=== PATIENT | female | born 1940 | race Caucasian/White ===

== ENCOUNTER → 2016-04-14 | Outpatient (CLI) | payer MEDICARE, BC | END | disposition home or self-care (01) | LOC: PCVCIMAG 13:40 | PROVIDERS: ATTEND Internal Medicine Cardiovascular Disease | DX: I25.10 Atherosclerotic heart disease of native coronary artery without angina pectoris (principal); I35.0 Nonrheumatic aortic (valve) stenosis; E78.00 Pure hypercholesterolemia, unspecified; E11.9 Type 2 diabetes mellitus without complications; L93.0 Discoid lupus erythematosus; R76.8 Other specified abnormal immunological findings in serum; M79.7 Fibromyalgia | CPT/HCPCS: 80061; 93005; 93306; G0463 ==

== ENCOUNTER → 2017-05-11 | Outpatient (CLI) | payer MEDICARE | END | disposition home or self-care (01) | LOC: PCVCIMAG 12:51 | DX: I25.10 Atherosclerotic heart disease of native coronary artery without angina pectoris (principal); R93.1 Abnormal findings on diagnostic imaging of heart and coronary circulation; I35.0 Nonrheumatic aortic (valve) stenosis; L93.0 Discoid lupus erythematosus; E11.9 Type 2 diabetes mellitus without complications; Z79.899 Other long term (current) drug therapy; Z88.0 Allergy status to penicillin | CPT/HCPCS: 80061; 93005; 93306; G0463 ==

== ENCOUNTER → 2018-08-27 | Outpatient (CLI) | payer MEDICARE, BC ==
--- NOTE | 2018-08-27 15:29 | PCVCIMAG ---
APPROVED REPORT Study performed: 08/27/2018 14:57:58 EXAM: Comprehensive 2D, Doppler, and color-flow Echocardiogram Patient Location: Echo lab Room #: 3Status: routine BSA: 2.13 HR: 62 bpmBP: 141/57 mmHg Rhythm: NSR Other Information Study Quality: Adequate Risk Factors: Cardiac Risk Factors: Hyperlipidemia, DM Indications Aortic Valve Disease CAD Aortic Stenosis 2D Dimensions IVSd: 13.47 (7-11mm)LVOT Diam: 20.00 (18-24mm) LVDd: 39.27 mm PWd: 12.40 (7-11mm)Ascending Ao: 32.94 (22-36mm) LVDs: 28.06 (25-40mm) Left Atrium: 33.82 (27-40mm) Aortic Root: 29.83 mm LV Single Plane 4CH: 58.38 % LV Single Plane 2CH: 52.40 % Biplane EF: 55.2 % Volumes Left Atrial Volume (Systole) Single Plane 4CH: 66.86 mLSingle Plane 2CH: 61.48 mL LA ESV Index: 32.00 mL/m2 Aortic Valve AoV Peak Terrence.: 2.47 m/s AO Peak Gr.: 24.39 mmHgLVOT Max P.59 mmHg AO Mean Gr.: 14.13 mmHgLVOT Mean P.46 mmHg AO V2 Mean: 1.80 m/sLVOT Max V: 1.07 m/s AO V2 VTI: 66.52 cmLVOT Mean V: 0.73 m/s SUSANA (VTI): 1.25 bi2RBLR V1 VTI: 25.96 cm SUSANA Vmax: 1.39 cm2 SV (LVOT): 83.15 mL Mitral Valve E/A Ratio: 0.7 MV Decel. Time: 344.40 ms MV E Max Terrence.: 0.89 m/s MV A Terrence.: 1.20 m/s IVRT: 101.50 ms TDI E/Lateral E': 12.71E/Medial E': 11.13 Medial E' Terrence.: 0.08 m/s Lateral E' Terrence.: 0.07 m/s Pulmonary Valve PV Peak Terrence.: 0.86 m/sPV Peak Gr.: 2.94 mmHg Pulmonary Vein P Vein S: 0.32 m/sP Vein A: 0.23 m/s P Vein D: 0.38 m/sP Vein A Dur.: 129.2 msec P Vein S/D Ratio: 0.84 Tricuspid Valve TR Peak Terrence.: 1.93 m/sRAP Estimate: 7.00 mmHg TR Peak Gr.: 14.87 mmHg PA Pressure: 22.00 mmHg Left Ventricle The left ventricle is normal size. There is normal LV segmental wall motion. Mild concentric left ventricular hypertrophy. Left ventricular systolic function is normal. The left ventricular ejection fraction is within the normal range. LVEF is 55-60%. Mild diastolic dysfunction is present (impaired relaxation pattern). Right Ventricle The right ventricle is normal size. The right ventricular systolic function is normal. Atria The left atrium size is normal. The right atrium size is normal. Aortic Valve Aortic valve is calcified. No aortic regurgitation is present. The peak aortic valve pressure gradient is 24 mmHg and the mean pressure gradient is 14 mmHg. The calculated aortic valve area is 1.3 cm2. Moderate aortic stenosis. Mitral Valve The mitral valve is normal in structure. Trace mitral regurgitation. No evidence of mitral valve stenosis. Tricuspid Valve The tricuspid valve is normal in structure. Trace tricuspid regurgitation. Pulmonary artery pressure is 22 mmHg. Pulmonic Valve The pulmonary valve is normal in structure. There is no pulmonic valvular regurgitation. Great Vessels The aortic root is normal in size. IVC is normal in size and collapses >50% with inspiration. Pericardium There is no pericardial effusion. <Conclusion> The left ventricle is normal size. LVEF is 55-60%. Mild diastolic dysfunction is present (impaired relaxation pattern). The right ventricle is normal size. The left atrium size is normal. Aortic valve is calcified. The peak aortic valve pressure gradient is 24 mmHg and the mean pressure gradient is 14 mmHg. The calculated aortic valve area is 1.3 cm2. Moderate aortic stenosis. Trace mitral regurgitation. Trace tricuspid regurgitation. Pulmonary artery pressure is 22 mmHg. The aortic root is normal in size. There is no pericardial effusion.
== END | disposition home or self-care (01) ==
LOC: PCVCIMAG 13:55
PROVIDERS: ATTEND Internal Medicine Cardiovascular Disease
DX: I35.0 Nonrheumatic aortic (valve) stenosis (principal); I25.10 Atherosclerotic heart disease of native coronary artery without angina pectoris; R93.1 Abnormal findings on diagnostic imaging of heart and coronary circulation; I35.8 Other nonrheumatic aortic valve disorders; E78.00 Pure hypercholesterolemia, unspecified; E11.9 Type 2 diabetes mellitus without complications; Z88.8 Allergy status to other drugs, medicaments and biological substances; Z88.0 Allergy status to penicillin; Z79.82 Long term (current) use of aspirin; Z79.899 Other long term (current) drug therapy
CPT/HCPCS: 36415; 80061; 93005; 93306; G0463